=== PATIENT | female | born 1985 | race African-American/Black ===

== ENCOUNTER 2017-04-04 10:00 | Inpatient (IN) | payer OTHER ==
[~2017-04-04] VITALS: Ht 162.6 cm; Wt 96.8 kg
[2017-04-04 13:38] LABS: HEMATOCRIT 37.1 % (36.0-46.0); MCH 29.3 PG (29.0-34.0); MCHC 33.2 G/DL (30.0-36.0); MCV 88.3 FL (83-99); MEAN PLAT.VOLUME 9.1 uM^3 (9.5-12.4); PLATELET COUNT 313 K/uL (156-360); RBC DIS.WIDTH-CV 13.2 % (11.8-14.6); RBC DIS.WIDTH-SD 42.6 % (39-53); WHITE BLOOD COUNT 11.6 K/uL (4.1-10.2)
[2017-04-04 13:46] LABS: CHLORIDE 102 mEq/L (99-109); POTASSIUM 3.7 mEq/L (3.7-5.4); SODIUM 138 mEq/L (136-147)
[2017-04-04 13:48] LABS: GLUCOSE 135 mg/dL (70-99)
[2017-04-04 13:49] LABS: ANION GAP 9 MEQ/L (2-14)
[2017-04-04 13:50] LABS: TOTAL BILIRUBIN 2.4 mg/dL (0.0-1.0)
[2017-04-04 13:52] LABS: ALKALINE PHOSPHATASE 312 IU/L (3-129); GFR ESTIMATE (CALCULATED) > 59 mL/min/
[2017-04-04 13:53] LABS: UREA NITROGEN (BUN) 8 mg/dL (9-23)
[2017-04-04 13:55] LABS: LIPASE 20 U/L (1.0-51.0)
[2017-04-04 15:34] LABS: ADD MIUA? YES; BILIRUBIN MODERATE; BLOOD NEGATIVE; COLOR AMBER ((YELLOW)); GLUCOSE (STRIP) NEGATIVE; KETONES NEGATIVE; LEUKOCYTES NEGATIVE; NITRITE NEGATIVE; PROTEIN (STRIP) 30
[2017-04-04 15:35] LABS: INTERNAL CONTROL VALID? YES
[2017-04-04 15:37] LABS: BACTERIA RARE /HPF; EPITHELIAL CELLS 1+ /HPF; MUCUS 1+ /LPF; UCUL ADDED? NO; WHITE BLOOD CELLS 0-5 /HPF (0-5)
[2017-04-04] MEDS ORDERED: COZAAR50 MG PO (15:59)
[2017-04-04 16:01] LABS: ICTOTEST POSITIVE
[2017-04-04 17:31] LABS: SALICYLATE < 5.0 MG/DL (15-30)
[2017-04-04 17:37] LABS: QUANTITATIVE HCG < 4.0 MIU/ML
[2017-04-04 20:47] VITALS: BP 141/82
[2017-04-04 23:17] VITALS: BP 141/83
[2017-04-05 04:15] VITALS: BP 143/85
[2017-04-05 07:37] LABS: HEMATOCRIT 36.9 % (36.0-46.0); MCH 28.8 PG (29.0-34.0); MCHC 32.5 G/DL (30.0-36.0); MCV 88.5 FL (83-99); MEAN PLAT.VOLUME 9.6 uM^3 (9.5-12.4); PLATELET COUNT 353 K/uL (156-360); RBC DIS.WIDTH-CV 13.4 % (11.8-14.6); RBC DIS.WIDTH-SD 43.6 % (39-53); RED BLOOD COUNT 4.17 M/uL (3.80-5.20); WHITE BLOOD COUNT 8.8 K/uL (4.1-10.2)
[2017-04-05 07:58] VITALS: BP 151/80
[2017-04-05 08:14] LABS: ALKALINE PHOSPHATASE 300 IU/L (3-129); ANION GAP 11 MEQ/L (2-14); CHLORIDE 101 MEQ/L (99-109); GFR ESTIMATE (CALCULATED) > 59 mL/min/; POTASSIUM 4.1 MEQ/L (3.7-5.4); SAMPLE HEMOLYSIS CHECK 0; SAMPLE ICTERIC CHECK 1; SAMPLE LIPEMIA CHECK 0; SODIUM 138 MEQ/L (136-147); TOTAL BILIRUBIN 3.5 MG/DL (0.0-1.0); UREA NITROGEN (BUN) 8 mg/dL (9-23)
[2017-04-05 08:17] LABS: GLUCOSE 100 mg/dL (70-99)
[2017-04-05 11:28] LABS: HBSG INDEX 0.22
[2017-04-05 11:29] LABS: ANTI-HEPATITIS A VIRUS (IGM) Nonreactive; HAV INDEX 0.16
[2017-04-05 11:31] LABS: ANTI-HEPATITIS B CORE (IGM) Nonreactive; HBC IgM INDEX 0.08
[2017-04-05 11:53] VITALS: BP 140/79
[2017-04-05 14:53] LABS: AMPHETAMINES QUANT VALUE 0 NG/ML; BARBITUATES QUANT VALUE 0 NG/ML; BENZODIAZEPINES QUANT VALUE 0 NG/ML; BENZODIAZEPINES, URINE SCREEN Negative (200 ng/mL); MARIJUANA QUANT VALUE 0 NG/ML; OPIATES QUANTITATIVE VALUE 0 NG/ML; PHENCYCLIDINE QUANT VALUE 0 NG/ML
[2017-04-05 15:36] LABS: INTER. NORMALIZED RATIO 1.1; PROTHROMBIN TIME 13.1 SEC (10.2-12.9)
[2017-04-05 15:39] LABS: PTT 24.4 SEC (25-37)
[2017-04-05 18:16] VITALS: BP 155/83
[2017-04-05 23:48] VITALS: BP 120/61
[2017-04-06 06:16] LABS: EOSINOPHIL (%) 0.8 % (0-5); EOSINOPHIL COUNT 0.1 K/uL (0-0.3); HEMATOCRIT 30.9 % (36.0-46.0); IMMATURE GRANULOCYTE (%) 0.2 % (0.0-0.7); INSTRUMENT ABS NEUTROPHIL CT 4.5 K/uL; MCH 28.7 PG (29.0-34.0); MCHC 32.4 G/DL (30.0-36.0); MCV 88.5 FL (83-99); MEAN PLAT.VOLUME 9.5 uM^3 (9.5-12.4); MONOCYTE (%) 9.8 % (3-12); MONOCYTE COUNT 0.8 K/uL (0-0.8); NEUTROPHIL (%) 53.3 % (45-76); NEUTROPHIL COUNT 4.5 K/uL (1.8-6.4); PLATELET COUNT 279 K/uL (156-360); RBC DIS.WIDTH-CV 13.4 % (11.8-14.6); RBC DIS.WIDTH-SD 43.9 % (39-53); RED BLOOD COUNT 3.49 M/uL (3.80-5.20); WHITE BLOOD COUNT 8.4 K/uL (4.1-10.2)
[2017-04-06 06:44] LABS: ALKALINE PHOSPHATASE 233 IU/L (3-129); ANION GAP 9 MEQ/L (2-14); CHLORIDE 107 MEQ/L (99-109); GFR ESTIMATE (CALCULATED) > 59 mL/min/; GLUCOSE 77 mg/dL (70-99); POTASSIUM 4.1 MEQ/L (3.7-5.4); SAMPLE HEMOLYSIS CHECK 0; SAMPLE ICTERIC CHECK 0; SAMPLE LIPEMIA CHECK 0; SODIUM 140 MEQ/L (136-147); UREA NITROGEN (BUN) 8 mg/dL (9-23)
[2017-04-06 06:48] LABS: TOTAL BILIRUBIN 1.4 MG/DL (0.0-1.0)
[2017-04-06 08:10] VITALS: BP 129/76
[2017-04-06 13:24] VITALS: BP 140/76
[2017-04-06 15:51] VITALS: BP 121/72
[2017-04-06 19:19] VITALS: BP 139/79
[2017-04-06 23:22] VITALS: BP 140/79
[2017-04-07 03:36] VITALS: BP 139/73
[2017-04-07 07:03] LABS: EOSINOPHIL (%) 2.1 % (0-5); EOSINOPHIL COUNT 0.2 K/uL (0-0.3); HEMATOCRIT 30.2 % (36.0-46.0); IMMATURE GRANULOCYTE (%) 0.4 % (0.0-0.7); INSTRUMENT ABS NEUTROPHIL CT 5.5 K/uL; MCH 30.2 PG (29.0-34.0); MCHC 33.1 G/DL (30.0-36.0); MCV 91.2 FL (83-99); MEAN PLAT.VOLUME 9.6 uM^3 (9.5-12.4); MONOCYTE (%) 8.4 % (3-12); MONOCYTE COUNT 0.9 K/uL (0-0.8); NEUTROPHIL (%) 51.6 % (45-76); NEUTROPHIL COUNT 5.5 K/uL (1.8-6.4); PLATELET COUNT 276 K/uL (156-360); RBC DIS.WIDTH-CV 14.1 % (11.8-14.6); RED BLOOD COUNT 3.31 M/uL (3.80-5.20); WHITE BLOOD COUNT 10.7 K/uL (4.1-10.2)
[2017-04-07 07:56] LABS: ALKALINE PHOSPHATASE 200 IU/L (3-129); ANION GAP 8 MEQ/L (2-14); CHLORIDE 107 MEQ/L (99-109); GFR ESTIMATE (CALCULATED) > 59 mL/min/; GLUCOSE 99 mg/dL (70-99); POTASSIUM 3.9 MEQ/L (3.7-5.4); SAMPLE HEMOLYSIS CHECK 0; SAMPLE ICTERIC CHECK 0; SAMPLE LIPEMIA CHECK 0; SODIUM 139 MEQ/L (136-147); TOTAL BILIRUBIN 0.7 MG/DL (0.0-1.0); UREA NITROGEN (BUN) 7 mg/dL (9-23)
[2017-04-07 08:02] VITALS: BP 123/65
[2017-04-07] MEDS ORDERED: PERCOCET 5/31 TABLET PO (10:07)
[2017-04-07] MEDS ORDERED: AUGMENTIN875 MG PO (10:09)
== END 2017-04-07 14:20 | disposition home or self-care (01) | DRG 418 ==
LOC: EME 10:00 → 3EAST 16:33 → EDOF 16:33 → ENRESERV 16:52 → 3EAST 20:40
PROVIDERS: Internal Medicine; Nurse Practitioner Family; Physician Assistant
DX: K80.67 Calculus of gallbladder and bile duct with acute and chronic cholecystitis with obstruction (principal); R17 Unspecified jaundice; I10 Essential (primary) hypertension; K59.00 Constipation, unspecified; E66.9 Obesity, unspecified; R74.0 Nonspecific elevation of levels of transaminase and lactic acid dehydrogenase [LDH]; Z87.891 Personal history of nicotine dependence; Z68.36 Body mass index [BMI] 36.0-36.9, adult
CPT/HCPCS: 71010; 74020; 74176; 74181; 74330; 76705; 80053; 80074; 80306 90; 81003; 82248; 83605; 83690; 84702; 84703; 85025; 85027; 85610; 85730; 86038; 87040; 87081; 88304; 99281; 99285; C1757; C1769; G0480; J0330; J1100; J1170; J1885; J2250; J2405; J2543; J2710; J3010; J7030; J7050